=== PATIENT | male | born 1970 | race Caucasian/White ===

== ENCOUNTER 2023-12-12 18:01 | Emergency (ER) | payer SELFPAY ==
[2023-12-12] VITALS (13 sets, daily range): BP systolic 146–218; BP diastolic 59–133; PULSE 90–112; RESP 14–26; TEMP 36.8; O2SAT 79–98
--- NOTE | 2023-12-12 18:27 | ECG_ITS ---
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 Measurements Intervals [place] Rate: 93 P: 57 NH: 104 QRS: 28 QRSD: 82 T: 57 QT: 330 QTc: 411 Interpretive Statements SINUS RHYTHM WITH SHORT NH INTERVAL POSSIBLE LEFT ATRIAL ENLARGEMENT [-0.1mV P-WAVE IN V1/V2] MODERATE ST DEPRESSION [0.05+ mV ST DEPRESSION] No previous ECG available for comparison Electronically Signed On 12-12-2023 23:07:42 CDT by Chava Rodriguez M.D. [email or web address]Ca[facility]ar[facility] iss[facility] hospitalI Had [facility].[email or web address]/[id number]
--- NOTE | 2023-12-12 18:31 | CTR_ITS ---
PROCEDURE INFORMATION: Exam: CT Head Without Contrast Exam date and time: 12/12/2023 7:28 PM Age: 53 years old Clinical indication: Pain; Headache; Migraine; Additional info: CLOUD TECHNIQUE: Imaging protocol: Computed tomography of the head without contrast. Radiation optimization: All CT scans at this facility use at least one of these dose optimization techniques: automated exposure control; mA and/or kV adjustment per patient size (includes targeted exams where dose is matched to clinical indication); or iterative reconstruction. COMPARISON: No relevant prior studies available. RADIATION DOSE METRICS: Total DLP (mGy-cm): 1121 FINDINGS: Brain: Acute right basal ganglia intraparenchymal hemorrhage measuring approximately 2.6 cm AP x 2.4 cm craniocaudal by 1.3 cm transverse with intraventricular extension, including the lateral ventricles, 3rd ventricle and 4th ventricle. There is mild prominence of the right temporal horn, which may reflect early developing hydrocephalus. 4 mm focal leftward midline shift in the region of the hematoma. Trace hemorrhage is noted extending through the right foramen of Luschka (image 57 of series 8). Background of moderate chronic microvascular ischemic changes with periventricular and deep white matter hypoattenuation. Basilar cisterns are patent. Paranasal sinuses: The visualized paranasal sinuses are well aerated. Mastoid air cells: The visualized mastoids and middle ears are clear. Bones: Unremarkable. No acute fracture. Soft tissues: No gross soft tissue abnormality. CT/CT head wo con* [id number] IMPRESSION: 1. Acute right basal ganglia intraparenchymal hemorrhage with intraventricular extension. 2. Mild prominence of the right temporal horn, which may reflect early developing hydrocephalus. Per the [facility] operation center, the report has been received and reviewed by Dr. Mckenzie at 9:27 PM EDT on 11/06/2023.Telephone conference has been declined.
--- NOTE | 2023-12-12 18:32 | W.ED.HA ---
HPI - Headache General: Chief Complaint: Headache Stated Complaint: Migraine\Vomiting\High BP Time Seen by Provider: 12/12/23 18:27 Source: patient Mode of arrival: ambulatory Limitations: no limitations History of Present Illness: 53-year-old male who has a history hypertension he states he has not taken his meds in quite some time he said that his blood pressure been running high and has had a headache for the last 2 days had some nausea and vomiting as well. States that headaches an 8 out of 10 he does have a history of migraines get headaches when he gets hypertensive. He is hypertensive here as well denies any chest pain denies any abdominal pain Associated symptoms: Reports nausea and vomiting; Deny chest pain, fever(s) or rash Review of Systems Const: Denies: fever(s), chills, body aches or change in appetite Eyes: Denies: blurry vision or eye discomfort ENMT: Denies: throat pain or dental pain Card: Denies: chest pain Resp: Denies: dyspnea GI: Reports: nausea and vomiting; Denies: abdominal pain or diarrhea Musc: Denies: neck pain or back pain Skin/Breast: Denies: rash Neuro: Reports: headache(s) PFSH ED PFSH: Medical History Essential hypertension History of GI bleed Hx of essential hypertension Surgical History No pertinent past surgical history Family History Father Hypertension Social History Smoking and tobacco/nicotine status: former use of tobacco/nicotine Second hand smoke exposure: No Alcohol intake: never Substance/Drug Use: never Adopted: No Caregiver/support person: No Lives independently: Yes Household members: family Housing: House Marital status: Single Number of children: 0 Highest education level completed: Some College, No Degree service: No Current occupational status: employed Physical Exam Const: COMMON NORMALS: no acute distress, patient oriented x3 and healthy appearing HENMT: COMMON NORMALS: normocephalic and atraumatic HEAD & SCALP: normocephalic and atraumatic Eye: COMMON NORMALS: conjunctivae normal CONJUNCTIVA: Yes conjunctivae normal Neck/C-Spine: COMMON NORMALS: full ROM and supple Chest: COMMONS NORMALS: normal inspection of the chest Resp: COMMON NORMALS: normal respiratory effort, No retractions, No use of accessory muscles and clear to auscultation bilaterally AUSCULTATION: clear to auscultation bilaterally Cardio: COMMON NORMALS: regular rate, regular rhythm and No murmurs present (Cardio) RATE: regular rate RHYTHM: regular rhythm GI: COMMON NORMALS: Normal to inspection, nondistended, normoactive bowel sounds present, Soft to palpation, non-tender and no masses PALPATION: Yes Soft to palpation Extremity: COMMON NORMALS: normal to inspection and full ROM Neuro: COMMON NORMALS: patient oriented x3, moves all extremities and no focal motor deficits Psych: COMMON NORMALS: mental status grossly normal, Normal thought process present and cooperative THOUGHT PROCESS: Normal thought process present Skin: COMMON NORMALS: no rashes or lesions noted and no wounds GENERAL SKIN EXAM: no rashes or lesions noted Course Vital Signs: Vital signs: Vital Signs Temperature 98.2 F 12/12/23 18:21 Pulse Rate 112 H 12/12/23 18:21 Blood Pressure 206/101 12/12/23 18:21 Pulse Oximetry 98 12/12/23 18:21 Oxygen Delivery Me thod Room Air 12/12/23 18:21 MDM - Headache Medical Decision Making Patient presents here with a intracerebral hemorrhage is likely from his uncontrolled hypertension have given him IV push blood pressure medicine started him on Cardene will transfer to [facility] for higher level of care of neurosurgery. Medical Records I reviewed the patient's medical records. Lab Data I reviewed the patient's lab results. 12/12/23 18:41 12/12/23 18:[address] 12/12/23 18:31 IMPRESSION: 1. Acute right basal ganglia intraparenchymal hemorrhage with intraventricular extension. 2. Mild prominence of the right temporal horn, which may reflect early developing hydrocephalus. Per the [facility] operation center, the report has been received and reviewed by Dr. Mckenzie at 9:27 PM EDT on 11/06/2023.Telephone conference has been declined. Laboratory Results WBC 15.03 10^3/uL (3.29-11.43) H 12/12/23 18:41 RBC 5.02 10^6/uL (3.85-5.65) 12/12/23 18:41 Hgb 16.00 g/dL (11.27-16.99) 12/12/23 18:41 Hct 47.9 % (37-53) 12/12/23 18:41 MCV 95.4 fl (82-101) 12/12/23 18:41 MCH 31.9 pg (27-33) 12/12/23 18:41 MCHC 33.4 g/dL (30-55) 12/12/23 18:41 RDW 12.6 % (12.1-15.1) 12/12/23 18:41 Plt Count 353 10^3/cmm (157-399) 12/12/23 18:41 MPV 10.0 fL (7.4-10.4) 12/12/23 18:41 Neut % (Auto) 85.3 % 12/12/23 18:41 Lymph % (Auto) 7.7 % 12/12/23 18:41 Norman % (Auto) 6.5 % 12/12/23 18:41 Eos % (Auto) 0.0 % 12/12/23 18:41 Baso % (Auto) 0.2 % 12/12/23 18:41 Neut # (Auto) 12.81 10^3/uL (1.8-7.7) H 12/12/23 18:41 Lymph # (Auto) 1.2 10^3/uL (0.8-4.8) 12/12/23 18:41 Norman # (Auto) 1.0 10^3/uL (0.2-0.9) H 12/12/23 18:41 Eos # (Auto) 0.0 10^3/uL (0.0-0.8) 12/12/23 18:41 Baso # (Auto) 0.0 10^3/uL (0.0-0.1) 12/12/23 18:41 Nucleated RBC % (auto) 0 % 12/12/23 18:41 Nucleated RBCs # 0.0 /100WBC 12/12/23 18:41 Sodium 145 mmol/L (136-145) 12/12/23 18:41 Potassium 3.0 mmol/L (3.5-5.1) L 12/12/23 18:41 Chloride 102 mmol/L (98-107) 12/12/23 18:41 Carbon Dioxide 27 mmol/L (22-29) 12/12/23 18:41 Anion Gap 19.0 (5-19) 12/12/23 18:41 BUN 27 mg/dL (6-20) H 12/12/23 18:41 Creatinine 1.8 mg/dL (0.7-1.2) H 12/12/23 18:41 GFR Calculation 39.8 mL/min (90-130) L 12/12/23 18:41 Glucose 140 mg/dL (65-115) H 12/12/23 18:41 Calculated Osmolality 307 mOsm/kg (285-295) H 12/12/23 18:41 Calcium 10.3 mg/dL (8.5-10.5) 12/12/23 18:41 Total Bilirubin 0.4 mg/dL (0.15-1.2) 12/12/23 18:41 AST 15 U/L (0-40) 12/12/23 18:41 ALT 11 U/L (0-41) 12/12/23 18:41 Alkaline Phosphatase 76 U/L (40-130) 12/12/23 18:41 Total Protein 8.5 g/dL (6.6-8.7) 12/12/23 18:41 Albumin 5.1 g/dL (3.5-5.2) 12/12/23 18:41 Globulin 3.4 g/dL (1.3-4.6) 12/12/23 18:41 All radiology interpretation(s) finalized by discharge EKG Data EKG 1: I personally reviewed and interpreted this EKG as follows: EKG interpretation date: 12/12/23 EKG interpretation time: 18:34 Interpretation: nsr hr [address] or t wave abnormalities qrs 82 qtc 381 Critical Care Time Critical Care Time: Critical Care Time: Yes Total Critical Care Time: 40 Attestation: The high probability of a clinically significant, sudden or life threatening deterioration of the patient's neurosystem(s) required my full and direct attention, intervention and personal management. The critical care time is as shown. This time is in addition to time spent performing any reported procedures but includes the following: [x] Data and vital sign review and interpretation [x] Patient assessment, examination and intervention [x] Documentation [x] Medication orders and management Discharge Plan Discharge Patient Disposition: Xfer Short-Term Hosp Clinical Impression: Intraparenchymal hemorrhage of brain Condition: Stable Coding Level of Care Code ED Adjunct Philosophy Faculty for Nicki Glass
[2023-12-12] MEDS: sodium chloride 0.9% 1,000 ML 999 ML IV (18:42)
[2023-12-12] MEDS: metoclopramide 5 mg/mL SDV 2 mL 10 MG IVP (18:42)
[2023-12-12] MEDS: diphenhydrAMINE 50 mg/mL SDV 1mL IVP (18:42)
[2023-12-12] MEDS: labetalol 5 mg/mL SDV 20mL 10 MG IVP (18:42)
[2023-12-12 19:13] LABS: Basophils % 0.2 %; Hematocrit 47.9 % (37-53); Lymphocytes # 1.2 10^3/uL (0.8-4.8); Lymphocytes % 7.7 %; Mean Corpuscular HGB Conc 33.4 g/dL (30-55); Mean Corpuscular Hemoglobin 31.9 pg (27-33); Mean Corpuscular Volume 95.4 fl (82-101); Monocytes % 6.5 %; Neutrophils # 12.81 10^3/uL (1.8-7.7); Neutrophils % 85.3 %; Nucleated Red Blood Cells % 0 %; Platelet Count 353 10^3/cmm (157-399); Red Blood Count 5.02 10^6/uL (3.85-5.65); Red Cell Distribution Width 12.6 % (12.1-15.1); White Blood Count 15.03 10^3/uL (3.29-11.43)
[2023-12-12] MEDS: labetalol 5 mg/mL SDV 20mL 20 MG IVP (19:22)
[2023-12-12 19:33] LABS: Alanine Aminotransferase 11 U/L (0-41); Albumin Level 5.1 g/dL (3.5-5.2); Alkaline Phosphatase 76 U/L (40-130); Aspartate Amino Transferase 15 U/L (0-40); Blood Urea Nitrogen 27 mg/dL (6-20); Calcium 10.3 mg/dL (8.5-10.5); Carbon Dioxide 27 mmol/L (22-29); Chloride 102 mmol/L (98-107); Creatinine Clr Calc Pharmacy 44.4984; Globulin 3.4 g/dL (1.3-4.6); Glomerular Filtration Rate 39.8 mL/min (90-130); Glucose 140 mg/dL (65-115); Osmolality Calculated 307 mOsm/kg (285-295); Sodium 145 mmol/L (136-145); Total Bilirubin 0.4 mg/dL (0.15-1.2); Total Protein 8.5 g/dL (6.6-8.7)
[2023-12-12] MEDS: hyDRALAzine 20 mg/mL INJ 1 mL 10 MG IVP (19:52)
[2023-12-12] MEDS: nicardipine 20 MG/200 ML PREMIX 100 MG IV ×2 (19:57→20:42)
[2023-12-12] MEDS: hyDRALAzine 20 mg/mL INJ 1 mL IVP (20:05)
== END 2023-12-12 20:35 | disposition short-term general hospital (02) ==
PROVIDERS: Emergency Provider Emergency Medicine
DX: I61.8 Other nontraumatic intracerebral hemorrhage (principal); I10 Essential (primary) hypertension; Z87.891 Personal history of nicotine dependence
CPT/HCPCS: 36415; 70450; 80053; 85025; 93005; 96365; 96375; 96376; 99285; 99291; J0360; J1200; J2765; J3490; J7030